=== PATIENT | female | born 1990 | race Two or more races ===

== ENCOUNTER → 2021-09-11 | Emergency (ER) | payer OTHER ==
[~2021-09-11] VITALS: Ht 165.1 cm; Wt 113.4 kg
[2021-09-11 21:08] VITALS: BP 134/87
== END | disposition left against medical advice (07) ==
LOC: EDBD 20:43 → ER 20:43
DX: M25.551 Pain in right hip (principal); Z53.21 Procedure and treatment not carried out due to patient leaving prior to being seen by health care provider
CPT/HCPCS: 72192